=== PATIENT | male | born 1930 | race Caucasian/White ===

== ENCOUNTER → 2017-09-14 | Outpatient (CLI) | payer MEDICARE, BC ==
[~2017-09-14] MED LIST: ATOR40TA24 PO; BICA50TA36 PO; CALC-18 PO; CALC-852 PO; CALC600T82 PO; CHOL10005 PO; CHON250C2 PO; CIPR250S2 PO; DOCU-416 PO; GLUC100026 PO; LEUP7.5S IM; LEVO50TA86 PO; OXYC-865 PO; PANT40TA65 PO; PHENA200 PO; PRAV80TA29 PO; RANI300C8 PO; SIMV-54 PO; TAM4 PO; VIT1CAPS9 PO
--- NOTE | 2017-09-16 18:58 | RT HOLTER TEST ---
FACILITY: [facility] - [place] PATIENT NAME: AMELIE CAMPUZANO : [id number] MR: [id number] V: [id number] EXAM DATE: ORDERING PHYSICIAN: MAHNAZ MUÑOZ TECHNOLOGIST: NETO Hook-up date: 2017-09-14 13:22:00 Duration: 47:59:00 Test Indications: BRADYCARDIA Medications: 660024 QRS complexes 367 Ventricular ectopics which represent <1 % of total QRS comp. 5724 Supraventricular ectopics which represent 3 % of total QRS comp. * Paced QRS complexes which represent % of total QRS comp. VENTRICULAR ECTOPY 359 Isolated 0 Bigeminal Cycles 4 Couplets 0 Runs 0 Beats in Runs * Beats LONGEST at * BPM at :: -- * Beats FASTEST at * BPM at :: -- SUPRAVENTRICULAR ECTOPY 5476 Isolated 60 Couplets 36 Runs 128 Beats in Runs 9 Beats LONGEST at 126 BPM at 16:15:26 2017-09-14 3 Beats FASTEST at 145 BPM at 13:37:30 2017-09-15 HEART RATES 37 MIN at 04:54:07 2017-09-16 56 AVG 131 MAX at 19:41:13 2017-09-15 LONGEST RR 2.024 secs at 00:52:00 2017-09-16 S-T LEVELS Channel 1 -12.800 mm MIN at 13:22:00 2017-09-14 -12.800 mm MAX at 13:22:00 2017-09-14 Channel 2 -12.800 mm MIN at 13:22:00 2017-09-14 -12.800 mm MAX at 13:22:00 2017-09-14 Channel 3 -12.800 mm MIN at 13:22:00 2017-09-14 -12.800 mm MAX at 13:22:00 2017-09-14 First degree AV block is noted. Rare ventricular ectopy with a few couplets. No runs. Occasional supraventricular ectopy with several short runs of what appears to be atrial fibrillation. A few pauses of approximately 2 seconds were recorded. Confirmed by EVETTE BRUNSON ([id number]) on 09/16/2017 6:57:28 PM Referred By: Overread By: EVETTE BRUNSON
== END ==
LOC: RESP 13:05
PROVIDERS: ATTEND Physician Assistant Medical
DX: I44.0 Atrioventricular block, first degree (principal)
CPT/HCPCS: 93225; 93226

== ENCOUNTER 2017-09-17 08:56 | Outpatient (RCR) | payer MEDICARE, BC ==
[2017-09-13 09:16] VITALS: BP 144/72
[2017-09-13 09:22] LABS: PLATELET COUNT, AUTOMATED 203 K/uL (150-450)
[2017-09-17 09:03] VITALS: BP 136/72
--- NOTE | 2017-09-17 09:31 | ONC Progress Note - NP.Halsey ---
Patient History Date of Service Sep 17, 2017 Reason For Visit/HPI Patient is seen in the clinic today for follow-up of his adenocarcinoma with unknown primary and previous history of prostate cancer. Overall patient reports that he is feeling very well. He did develop a very low blood pressure after having his labs drawn and since then has followed with his primary care provider and recently completed a Holter monitor. Results are pending. He reports that his blood pressure has returned to normal baseline and he denies any symptoms of lightheadedness, dizziness, shortness of breath or symptoms to suggest that he had an infection. Patient has been exercising at least twice weekly at the gym. He has no concerns today. Labs are reviewed with patient today and are essentially unremarkable. Patient's PSA is less then 0.06 and remained stable. Problem List (1) Tubular adenoma of colon (2) Mccullough's esophagus (3) Prostate cancer (4) Carcinoma of unknown primary (5) Mass in neck (6) Hypothyroidism Oncology History Prostate Cancer history 1. Poorly differentiated adenocarcinoma of the prostate, predominantly left lobe , status post external beam radiotherapy to 7200 cGy completed March 2002. Lupron reinitiated for biochemical relapse in July 2014 with a PSA of 10. PSA dropped to undetectable. Last Lupron was completed 06/22/2016. PSA was less than 0.06. Dr. Dubon had recommended patient complete Lupron for a total of 2 years with intermittent pulsed dose to follow as needed. Patient having poor toleration, increased weight gain, increased fatigue, decreased bone density and bowel gas, Lupron was discontinued with this last injection. Say remains less than 0.06. Adenocarcinoma of unknown primary 08/20/14: Submantle Node biopsy:Metastatic poorly differentiated carcinoma - Right 09/02/14: PET/CT: "Right anterior hyoid hypermetabolic soft tissue thickening nodule may present the site of recent biopsy. Right hilar mild hypermetabolism represent the site of primary malignancy or metastatic disease. Intermediate 5mm pulmonary nodule abutting the major fissure" - no clear source of primary seen 09/11/14: EGD: hyperplastic polyp in stomach, intestinal metaplasia (Mccullough's esophagus, no evidence of dysplasia) 11/23/14: CT neck with and without contrast: no adenopathy. 03/17/15: CT chest/abdomen/pelvis: unchanged right upper lobe and right middle lobe pulmonary nodules, measuring 3mm and 5 mm. No definitive change noted. Colonoscopy: cecum tubular adenoma 08-04-15 CT chest/abdomen/pelvis: unchanged of all previously noted sites. CT neck:- previously noted soft tissue mass is no longer seen- unremarkable study 12/31/15: CT chest/abd/pelvis: No CT evidence of metastatic disease, Previously noted micro-pulmonary nodules have remained stable, 8 mm lipoma in pancreatic body is stable, Moderate amount of fecal material the colon consistent with constipation, Small hiatal hernia, Renal cysts unchanged 07/07/16: CT chest/abd/pelvis: No CT evidence of metastatic disease identified in the chest abdomen or pelvis. Perviously noted pulmonary micronodules have remained stable. Tracheal and bronchial nodularity also remained stable. 8 mm lipoma in the pancreatic body is stable. Moderate amount of fecal material seen in the colon consistent with constipation. Renal cyst unchanged. Small hiatal hernia 06-28-16 Dexa scan positive for osteopenia with a 7.6% decreased in the lumbar spine and 4.6% decrease in the left total hip. EGD in 2016 reported to show inflammation in the distal esophagus by Dr. Phillips. Patient started on medication with improvement in GERD but has experienced gas Colonoscopy to be done in 2018 Medical History Family History: FH: celiac disease CHILD FH: ovarian cancer CHILD Psychosocial History Social History Patient is and has four children, three of which live very close by. 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 Originally from [place], [place]. Rare alcohol use. Smoking History: No Smoking Status: Never Smoker Exposure to Second Hand Smoke?: No Medications and Allergies Reported Medications Vit C/E/Zn/Coppr/Lutein/Zeaxan (Preservision Areds 2 Softgel) 1 Each Capsule, 1 CAP PO DAILY 05/30/17 Calcium Carbonate (CALCIUM CARBONATE) 600 Mg Tablet, 1 TAB PO DAILY 05/30/17 Cholecalciferol (Vitamin D3) (VITAMIN D3) 1,000 Unit Tablet, 1 TAB PO DAILY 10/10/16 Allergies: Coded Allergies: No Known Drug Allergies (Unverified , 08/19/14) Review of System/Physical Exam Review of Systems All Systems Reviewed/Normal: Yes, Except as Noted Cardiovascular: Positive for Other (reports a recent episode of low blood pressure and completion of Holter monitor with results pending) Physical Exam Vital Signs Temperature: 98.2 Pulse: 52 BP Systolic: 136 BP Diastolic: 72 Respiratory Rate: 16 O2 SAT: 98 O2 Delivery: Room Air Height (inches) 68.00 Weight lb: 158 Weight oz: 5.0 Weight Kg (Stewart): Pain: 0 ECOG Score: 0 General: Stable, Well Developed, Well Nourished, Not In Acute Distress HEENT: No Trauma, No Conjunctivitis, No Icterus, No Mucositis Neck: Supple Lungs: Clear to Auscultation Heart: Regular Rate, Regular Rhythm, No Gallops, No Murmurs Abdomen: Soft and Nontender, No Hepatosplenomegaly, No Masses Extremities: No Cyanosis, No Clubbing, No Edema Lymphadenopathy: No Cervical, No Subclavicular Psychiatric: Mood appears normal, Affect appears normal Skin: No Skin Rashes, No Bruising, No Purpura Diagnostic Studies Diagnostic Studies Laboratory Laboratory Tests 09/13/17 09:09 Laboratory Tests 09/13/17 09:09: White Blood Count 4.7, Red Blood Count 4.31, Hemoglobin 13.8, Hematocrit 40.5, Mean Corpuscular Volume 93.8, Mean Corpuscular Hemoglobin 31.9, Mean Corpuscular Hemoglobin Concent 34.1, Red Cell Distribution Width 13.2, Platelet Count 203, Mean Platelet Volume 7.0, Neutrophils (%) (Auto) 50.5, Lymphocytes (% ) (Auto) 34.9, Monocytes (%) (Auto) 9.4, Eosinophils (%) (Auto) 2.7, Basophils ( %) (Auto) 2.5, Nucleated RBC Relative Count (auto) 0.0, Neutrophils # (Auto) 2.4 , Lymphocytes # (Auto) 1.6, Monocytes # (Auto) 0.4, Eosinophils # (Auto) 0.1, Basophils # (Auto) 0.1, Nucleated RBC Absolute Count (auto) 0.00, Peripheral Blood Smear Yes, Sodium Level 139, Potassium Level 4.1, Chloride Level 102, Carbon Dioxide Level 25, Blood Urea Nitrogen 17, Creatinine 1.00, Glomerular Filtration Rate Calc > 60.0, Random Glucose 87, Calcium Level 9.1, Total Bilirubin 0.6, Aspartate Amino Transf (AST/SGOT) 25, Alanine Aminotransferase ( ALT/SGPT) 28, Alkaline Phosphatase 88, Total Protein 7.6, Albumin 4.0, Prostate Specific Antigen < 0.06 Assessment and Plan Assessment & Plan Patient is a very pleasant 87-year-old gentleman with the following. 1. Prostate cancer with a currently undetectable prostatic specific antigen. Lupron on hold Indefinitely. Could consider alternative androgen deprivation therapy in the future if his PSA rises significantly. However, if it is a slow rise, active surveillance is recommended. 2. Adenocarcinoma of unknown primary. Annual scans including scans in December of 2016 have been negative. His last CEA was slightly elevated at 3.8. I will order a CEA with his next lab draw for continued monitoring. Patient is scheduled to follow with Dr. Samayoa in 3 months with repeat labs. He will follow sooner than that if questions or concerns. I personally spent a total of 20 minutes. Of that 20 minutes was counseling/ coordination of patient's care. See my note above for details. Copies to: JENNIFER WRIGHT MD, NANCY J FORK ASSEMBLER-BC, ONC Sep 17, 2017 09:31
== END 2017-10-17 15:07 | disposition home or self-care (01) ==
LOC: ONC 08:56
PROVIDERS: ATTEND Internal Medicine
DX: C61 Malignant neoplasm of prostate (principal); D12.6 Benign neoplasm of colon, unspecified; C7A.00 Malignant carcinoid tumor of unspecified site; K22.70 Barrett's esophagus without dysplasia; E03.9 Hypothyroidism, unspecified; R22.1 Localized swelling, mass and lump, neck; Z79.899 Other long term (current) drug therapy
CPT/HCPCS: 36415; 84153; 85025; G0463; 82040; 82247; 82310; 82374; 82435; 82565; 82947; 84075; 84132; 84155; 84295; 84450; 84460; 84520; 99212

== ENCOUNTER 2017-12-03 08:47 | Outpatient (RCR) | payer MEDICARE, BC ==
[2017-11-28 09:17] LABS: PLATELET COUNT, AUTOMATED 165 K/uL (150-450)
[2017-11-28 16:54] VITALS: BP 147/95
[2017-12-03 08:51] VITALS: BP 138/70
[2017-12-03] MEDS ORDERED: LEVO50TA86 PO (08:53)
--- NOTE | 2017-12-04 17:39 | ONCOLOGY FOLLOW UP NOTE ---
EVENT DATE: December 03, 2017 CHIEF COMPLAINT/REASON FOR VISIT Mr. Her is a pleasant 87-year-old gentleman with a history of prostate cancer as well as adenocarcinoma of unknown primary, who presents for followup. HISTORY OF PRESENT ILLNESS Fma returns. I took over his care in December of 2016. With regard to his prostate cancer, he stopped the Lupron due to side effects and abdominal weight gain in 2015. His PSA remains undetectable this month as well. There was a 13-year gap between his initial diagnosis in 2001 and relapse in 2014, and so we will continue to watch this twice yearly. No symptoms to suggest return of prostate cancer. With regard to the adenocarcinoma of unknown primary found in the right submandibular gland in July 2014, he continued to have no evidence of disease. It has been over three years since his diagnosis and he has no concerning findings on exam or any symptoms of concern. His scans at the two and a half year jed in December of 2016 were negative. After consideration of this and discussion with Fam, we will only get imaging in the future if needed in terms of symptoms or other symptoms of concern. Overall the patient feels quite well. He continues to exercise regularly. He jokes that his biggest complaint is that he accidentally closed his finger in a car door and hurt his nail. Otherwise no other issues of concern. ONCOLOGY HISTORY Prostate Cancer history 1. Poorly differentiated adenocarcinoma of the prostate, predominantly left lobe , status post external beam radiotherapy to 7200 cGy completed March 2002. Lupron reinitiated for biochemical relapse in July 2014 with a PSA of 10. PSA dropped to undetectable. Last Lupron was completed 06/22/2016. PSA was less than 0.06. Dr. Dubon had recommended patient complete Lupron for a total of 2 years with intermittent pulsed dose to follow as needed. Patient having poor toleration, increased weight gain, increased fatigue, decreased bone density and bowel gas, Lupron was discontinued with this last injection. Say remains less than 0.06. Adenocarcinoma of unknown primary 08/20/14: Submantle Node biopsy:Metastatic poorly differentiated carcinoma - Right 09/02/14: PET/CT: "Right anterior hyoid hypermetabolic soft tissue thickening nodule may present the site of recent biopsy. Right hilar mild hypermetabolism represent the site of primary malignancy or metastatic disease. Intermediate 5mm pulmonary nodule abutting the major fissure" - no clear source of primary seen 09/11/14: EGD: hyperplastic polyp in stomach, intestinal metaplasia (Mccullouhg's esophagus, no evidence of dysplasia) 11/23/14: CT neck with and without contrast: no adenopathy. 03/17/15: CT chest/abdomen/pelvis: unchanged right upper lobe and right middle lobe pulmonary nodules, measuring 3mm and 5 mm. No definitive change noted. Colonoscopy: cecum tubular adenoma 08-04-15 CT chest/abdomen/pelvis: unchanged of all previously noted sites. CT neck:- previously noted soft tissue mass is no longer seen- unremarkable study 12/31/15: CT chest/abd/pelvis: No CT evidence of metastatic disease, Previously noted micro-pulmonary nodules have remained stable, 8 mm lipoma in pancreatic body is stable, Moderate amount of fecal material the colon consistent with constipation, Small hiatal hernia, Renal cysts unchanged 07/07/16: CT chest/abd/pelvis: No CT evidence of metastatic disease identified in the chest abdomen or pelvis. Perviously noted pulmonary micronodules have remained stable. Tracheal and bronchial nodularity also remained stable. 8 mm lipoma in the pancreatic body is stable. Moderate amount of fecal material seen in the colon consistent with constipation. Renal cyst unchanged. Small hiatal hernia 06-28-16 Dexa scan positive for osteopenia with a 7.6% decreased in the lumbar spine and 4.6% decrease in the left total hip. EGD in 2016 reported to show inflammation in the distal esophagus by Dr. Phillips. Patient started on medication with improvement in GERD but has experienced gas Colonoscopy to be done in 2018 SOCIAL HISTORY Patient is and has four children, three of which live very close by. 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 Originally from [place], [place]. Rare alcohol use. Never smoker. FAMILY HISTORY Daughter with ovarian cancer. REVIEW OF SYSTEMS CONSTITUTIONAL: No fever or chills, weight loss. HEENT: No headache, vision changes. CARDIOVASCULAR: No chest pain, dyspnea on exertion, edema. RESPIRATORY: No shortness of breath, wheeze, cough. GASTROINTESTINAL: No nausea, vomiting. GENITOURINARY: No dysuria, hematuria. MUSCULOSKELETAL: Positive arthritis, but is able to walk without difficulty. SKIN: No concerning rashes or lesions. ENDOCRINE: No heat or cold intolerance. PSYCHIATRIC: No anxiety or depression. IMMUNOLOGIC: No issues with infection. The remainder of the 14-point review of systems is negative is otherwise negative. PHYSICAL EXAMINATION VITAL SIGNS: Blood pressure 138/70, pulse 45, respiratory rate 16, temperature 97 Fahrenheit, oxygen saturation 96% on room air. Weight 73.8 kg. Pain 0/10, fatigue 0/10. GENERAL: In stable condition, resting comfortably in the chair. HEENT: Normocephalic, atraumatic. CARDIOVASCULAR: Bradycardia. Irregular rhythm. We did have a recent Holter monitor which suggests he may have sick sinus syndrome or other bradycardia. Should follow up with his primary care provider. LUNGS: Clear. ABDOMEN: Soft, nontender. No organomegaly or masses. EXTREMITIES: No clubbing, cyanosis or edema. LYMPHATIC: No appreciable cervical, supraclavicular or axillary adenopathy. SKIN: No concerning findings. The remainder of the physical exam otherwise unremarkable. IMPRESSION AND PLAN Mr. Her is a very pleasant 87-year-old gentleman with the following. 1. Prostate cancer with a currently undetectable prostatic specific antigen. Lupron on hold Indefinitely and it was stopped in 2015. Recommend active surveillance. He was first diagnosed in 2001 with relapse in 2014. 2. Adenocarcinoma of unknown primary. We will now only get scans as needed. He did have a negative scan in December of 2016 which was two and a half years after his diagnosis. No findings on exam. Would like to see him every six months. I answered all of his questions today. Billing: Return visit level 4. Total time 30 minutes, counseling time 25. MTDD
== END 2017-12-19 14:02 | disposition home or self-care (01) ==
LOC: ONC 08:47
PROVIDERS: ATTEND Internal Medicine
DX: Z85.46 Personal history of malignant neoplasm of prostate (principal); D12.6 Benign neoplasm of colon, unspecified; C7A.00 Malignant carcinoid tumor of unspecified site
CPT/HCPCS: 36415; 82378; 84153; 85025; G0463; 82040; 82247; 82310; 82374; 82435; 82565; 82947; 84075; 84132; 84155; 84295; 84450; 84460; 84520; 99212

== ENCOUNTER 2017-12-11 08:15 | Outpatient (RCR) | payer MEDICARE, BC ==
--- NOTE | 2017-11-15 15:31 | PT INITIAL EVALUATION ---
MEDICAL DIAGNOSIS: R wrist fracture TREATMENT DIAGNOSIS: same DATE OF ONSET: 10/01/17 SUBJECTIVE: Fam Mills presents to physical therapy status post R wrist fracture that occurred around the 01 of October following a fall when an outstretched R hand while shoveling his [employer] driveway. He reports that he fell approximately 2 week prior to seeking medical attention. He reports that he was immobilized in a brace for the last 4 weeks. He reports minimal R wrist pain and rates it to be 1-2/10. He reports that he is left handed, but used his R hand a lot prior to his injury. Pain location is R wrist dorsal pain (non- specific area pain) and described as achy. Pain scale is 2 on a ten point pain scale. Pain is worse with movement and better with ice and rest. REHAB PROBLEM LIST: Increased Pain Decreased ROM Decreased Strength Decreased Endurance Decreased Function Decreased ADL's PREVIOUS MEDICAL HISTORY: See EMR OCCUPATION: Retired OBJECTIVE: Posture: He demonstrated minimal forward head, minimal B rounded shoulders, minimal thoracic kyphosis, and decreased lumbar lordosis. ROM: L wrist PROM: flexion: 45 deg, extension: 75, ulnar deviation: 35 deg, radial deviation: 20 deg, supination: 90 deg, and pronation: 90 deg. L wrist AROM: flexion: 25 degrees, extension: 60, ulnar deviation: 35 deg, radial deviation: 20 deg. R wrist PROM: flexion: 40 deg, extension: 55 deg, ulnar deviation: 30 degrees, radial deviation: 20 degrees, supination and pronation: 90 degrees. R wrist AROM: flexion: 23 degrees, extension: 45 deg, ulnar deviation: 35 deg, radial deviation: 20 degree, pronation and supination: 90 degrees. He demonstrated empty end feels with R wrist flexion and extension. Strength: Will test in the future Palpation: R wrist dorsal pain surrounding the metacarpals, carpals bones, and distal ulnar and radial bones. Sensation: Intact Special Tests: Moderate hypomobility with 1-5 metatarsals Mobility: Independent ASSESSMENT: Fam Mills will benefit from skilled physical therapy addressing the listed impairments to improve function, return to prior level of function, and improve QOL. Short Term Goals 2 weeks: Pt will demonstrate full PROM-AROM of R wrist flexion and extension ( equal with L wrist flexion and extension) to improve function and QOL. 4 weeks: Pt will demonstrate improvements with R wrist, hand, and sales development consultant strength from baseline to 4+/5 to improve function and QOL. Patient's Goals improve ROM and strength PLAN: Patient to be seen for Manual Therapy/STM/MET Strengthening/condition Range of Motion Work Hardening/Cond Stretching Neuromuscular Re-ed Closed Chain Program Posture/Body mechanics Home Exercise Program Therapeutic Activities 2x/Week for 4 Weeks If you have any questions, comments, or concerns about this report or plan, please contact me at . Thank you, Darwin Guallpa, PT, DPT MTDD
--- NOTE | 2017-12-12 09:47 | PT PLAN OF CARE ---
Physician: Chandra Ramirez MD Patient is being seen: 2x/week Therapist: Darwin Guallpa, PT, DPT Medical Diagnosis: R wrist fracture Treatment Diagnosis: same Date of Onset: 10/01/17 Date of Initial Evaluation: 11/15/17 Date patient was last seen: 12/11/17 Number of treatments: 8 Number of cancellations/No shows: 0 INTERVENTIONS: Manual Therapy/STM/MET Strengthening/condition Range of Motion Work Hardening/Cond Stretching Neuromuscular Re-ed Closed Chain Program Posture/Body mechanics Home Exercise Program Therapeutic Activities GOALS: 2 weeks: Pt will demonstrate full PROM-AROM of R wrist flexion and extension ( equal with L wrist flexion and extension) to improve function and QOL. MET 4 weeks: Pt will demonstrate improvements with R wrist, hand, and buccaro strength from baseline to 4+/5 to improve function and QOL. MET PATIENT'S GOAL: improve ROM and strength: MET Status of Patient's Goals: MET Patient Compliance: Excellent Prognosis: Excellent Reasons for continuing therapy: This is a discharge note for Fam Mills. He reports that he is feeling great and denies any pain. He demonstrates equal strength and range of motion from R to L side. He continues to be independent with his home exercise program. As a result, he will be discharged from PT. Posture: He demonstrated minimal forward head, minimal B rounded shoulders, minimal thoracic kyphosis, and decreased lumbar lordosis. ROM: L wrist PROM: flexion: 45 deg, extension: 75, ulnar deviation: 35 deg, radial deviation: 20 deg, supination: 90 deg, and pronation: 90 deg. L wrist AROM: flexion: 45 degrees, extension: 75, ulnar deviation: 35 deg, radial deviation: 20 deg. R wrist PROM: flexion: 45 deg, extension: 75 deg, ulnar deviation: 35 degrees, radial deviation: 20 degrees, supination and pronation: 90 degrees. R wrist AROM: flexion: 45 degrees, extension: 75 deg, ulnar deviation: 35 deg, radial deviation: 20 degrees, pronation and supination: 90 degrees. He demonstrated normal end feels in all directions Strength: R buccaro: 76#, L buccaro: 76# best of 3 Special Tests: Normal accessory mobility with 1-5 metatarsals Mobility: Independent If you have any questions, please contact me at [phone]. Thank you, Darwin Guallpa, PT, DPT [facility]
== END 2017-12-11 18:00 | disposition home or self-care (01) ==
LOC: PT 08:15
PROVIDERS: ATTEND Orthopaedic Surgery Hand Surgery
DX: Z47.89 Encounter for other orthopedic aftercare (principal); M25.531 Pain in right wrist
CPT/HCPCS: 97162

== ENCOUNTER → 2018-02-11 | Outpatient (CLI) | payer MEDICARE, BC ==
[~2018-02-11] MED LIST changes: -BICA50TA36 PO; +BICA50TA41 PO; +CEPH500C24 PO; +TAMS0.4C25 PO
== END ==
LOC: LAB 10:53
PROVIDERS: ATTEND Urology
DX: N39.0 Urinary tract infection, site not specified (principal); B96.89 Other specified bacterial agents as the cause of diseases classified elsewhere
CPT/HCPCS: 81001; 87077; 87088

== ENCOUNTER 2018-02-14 15:40 | Emergency (ER) | payer MEDICARE, BC ==
[~2018-02-14 15:40] MED LIST changes: -CEPH500C24 PO; -TAMS0.4C25 PO
[2018-02-14] MEDS ORDERED: CEPH500C24 PO (15:56)
[2018-02-14] MEDS ORDERED: TAMS0.4C25 PO (15:56)
--- NOTE | 2018-02-14 17:04 | ER Report ---
History and Physical Time Seen By MD: 15:49 Hx. of Stated Complaint: patient has had a uti for a while; seen Dr. Wlesh urology this week and was placed on antibiotics and flomax HPI/ROS CHIEF COMPLAINT: urinary retention HISTORY OF PRESENT ILLNESS: Pt has hx of prostate cx x 3, though with PSA most recently nl, was seen at his urologist and noted to have uti, placed on keflex. Pt has had 2 d of decreased urination despite urgency, abd bloating, decrease in caliber of stools. He denies vomiting, nausea, cp, sob, fevers, chills REVIEW OF SYSTEMS: Constitutional: No fever, no chills. Eyes: No discharge. ENT: No sore throat. Cardiovascular: No chest pain, no palpitations. Respiratory: No cough, no shortness of breath. Gastrointestinal: abdominal bloating, no vomiting Genitourinary: No hematuria, cannot urinate more than a couple ounces; has had urinary incontinence Musculoskeletal: No back pain. Skin: No rashes. Neurological: No headache. Remainder of the 14 system rev: Yes Allergies: Coded Allergies: No Known Drug Allergies (Unverified , 08/19/14) Home Meds Reported Medications Tamsulosin Hcl (FLOMAX) 0.4 Mg Cap.er.24h, 0.4 MG PO, CAP 02/14/18 Cephalexin Monohydrate (CEPHALEXIN) 500 Mg Cap, 500 MG PO Q6H, CAP 02/14/18 Levothyroxine Sodium (LEVOTHYROXINE SODIUM) 50 Mcg Tablet, 50 MCG PO QDAY, TAB 12/03/17 Vit C/E/Zn/Coppr/Lutein/Zeaxan (Preservision Areds 2 Softgel) 1 Each Capsule, 1 CAP PO DAILY 05/30/17 Calcium Carbonate (CALCIUM CARBONATE) 600 Mg Tablet, 1 TAB PO DAILY 05/30/17 Cholecalciferol (Vitamin D3) (VITAMIN D3) 1,000 Unit Tablet, 1 TAB PO DAILY 10/10/16 Past Medical/Surgical History prostate cx Hx Smoking: No Smoking Status: Never Smoker Exposure to Second Hand Smoke?: No Constitutional Vital Sign - Last 24 Hours 02/14/18 02/14/18 02/14/18 15:47 15:47 16:00 Temp 97.8 Pulse 75 Resp 17 B/P (MAP) 145/77 (99) 145/77 142/91 (108) Pulse Ox 95 O2 Delivery Room Air Intake and Output 02/14/18 02/14/18 02/15/18 15:00 23:00 07:00 Output Total 100 ml Balance -100 ml Physical Exam General Appearance: The patient is alert, has no immediate need for airway protection and no signs of toxicity. [ ] Eyes: Pupils equal and round no pallor or injection. ENT, Mouth: Mucous membranes are moist. Respiratory: There are no retractions, lungs are clear to auscultation. Cardiovascular: regular rate and rhythm. No m/r/g Gastrointestinal: abdomen is distended, minimally tender. BS nl [Neurological:] alert/oriented Skin: Warm and dry, no rashes. Musculoskeletal: no edema, moves all ext Extremities are nontender, nonswollen and have full range of motion. [ ] DIFFERENTIAL DIAGNOSIS: After history and physical exam differential diagnosis was considered for urinary retention, urosepsis, prostatitis, abdominal obstruction, or other emergent etiology. Medical Decision Making Data Points Laboratory Hematology Test 02/14/18 16:23 Urine Color Yellow Urine Clarity Slightly-cloudy Urine pH 6.0 pH (4.8-9.5) Urine Specific [place] 1.010 Urine Protein 30 mg/dL (NEGATIVE) Urine Glucose (UA) Negative mg/dL (NEGATIVE) Urine Ketones Negative mg/dL (NEGATIVE) Urine Blood Negative (NEGATIVE) Urine Nitrite Negative (NEGATIVE) Urine Bilirubin Negative (NEGATIVE) Urine Urobilinogen Negative mg/dL (0.2-1.9) Urine Leukocyte Esterase Moderate (NEGATIVE) Urine RBC 5 /HPF (0-2/HPF) Urine WBC 109 /HPF (0-5/HPF) Urine WBC Clumps Mod /HPF Urine Squamous Epithelial Cells Moderate /LPF (NONE-FEW) Urine Bacteria Few /HPF (NONE-FEW) Urine Mucus None /HPF (NONE-FEW) Chemistry Test 02/14/18 16:23 Urine Color Yellow Urine Clarity Slightly-cloudy Urine pH 6.0 pH (4.8-9.5) Urine Specific [place] 1.010 Urine Protein 30 mg/dL (NEGATIVE) Urine Glucose (UA) Negative mg/dL (NEGATIVE) Urine Ketones Negative mg/dL (NEGATIVE) Urine Blood Negative (NEGATIVE) Urine Nitrite Negative (NEGATIVE) Urine Bilirubin Negative (NEGATIVE) Urine Urobilinogen Negative mg/dL (0.2-1.9) Urine Leukocyte Esterase Moderate (NEGATIVE) Urine RBC 5 /HPF (0-2/HPF) Urine WBC 109 /HPF (0-5/HPF) Urine WBC Clumps Mod /HPF Urine Squamous Epithelial Cells Moderate /LPF (NONE-FEW) Urine Bacteria Few /HPF (NONE-FEW) Urine Mucus None /HPF (NONE-FEW) Urinalysis Test 02/14/18 16:23 Urine Color Yellow Urine Clarity Slightly-cloudy Urine pH 6.0 pH (4.8-9.5) Urine Specific [place] 1.010 Urine Protein 30 mg/dL (NEGATIVE) Urine Glucose (UA) Negative mg/dL (NEGATIVE) Urine Ketones Negative mg/dL (NEGATIVE) Urine Blood Negative (NEGATIVE) Urine Nitrite Negative (NEGATIVE) Urine Bilirubin Negative (NEGATIVE) Urine Urobilinogen Negative mg/dL (0.2-1.9) Urine Leukocyte Esterase Moderate (NEGATIVE) Urine RBC 5 /HPF (0-2/HPF) Urine WBC 109 /HPF (0-5/HPF) Urine WBC Clumps Mod /HPF Urine Squamous Epithelial Cells Moderate /LPF (NONE-FEW) Urine Bacteria Few /HPF (NONE-FEW) Urine Mucus None /HPF (NONE-FEW) ED Course/Re-evaluation ED Course Pt feels significantly improved with urine cath; leg bag placed. UA with sgs of infection though given recent keflex and pt's symptoms, it is likely effective. I reviewed typical susceptibilities of A. Urinae as our lab is unable to run this; it is generally pcn (keflex) sensitive, so will maintain keflex. At 1645 I attempted to page Dr[address] Quiroga to discuss plan and f/u; Dr. Quiroga in agreement with plan. Decision to Disposition Date: Feb 14, 2018 Decision to Disposition Time: 17:04 Depart Departure Latest Vital Signs Vital Signs Date Time Temp Pulse Resp B/P (MAP) Pulse Ox O2 Delivery O2 Flow Rate FiO2 02/14/18 16:00 142/91 (108) 02/14/18 15:47 97.8 75 17 95 Room Air Impression: Primary Impression: Urinary retention Condition: Improved Disposition: HOME OR SELF-CARE Referrals: JENNIFER WRIGHT MD (PCP) JENN QUIROGA MD Patient Instructions: Garzon Catheter Placement and Care (ED), Urinary Retention in Men (ED) VIKASH RANKIN MD Feb 14, 2018 17:04
[2018-02-14 17:45] VITALS: BP 148/92
== END 2018-02-14 18:08 | disposition home or self-care (01) ==
LOC: ER 15:49
DX: R33.9 Retention of urine, unspecified (principal)
CPT/HCPCS: 81001; 99282

== ENCOUNTER → 2018-02-25 | Outpatient (CLI) | payer MEDICARE, BC ==
[~2018-02-25] MED LIST changes: +CEPH500C24 PO; +TAMS0.4C25 PO
--- NOTE | 2018-02-25 11:44 | RADIOLOGY IMAGING REPORT ---
FACILITY: [facility] PATIENT NAME: Fam Mills : 1930 MR: [id number] V: [id number] EXAM DATE: ORDERING PHYSICIAN: AMADEO LÓPEZ TECHNOLOGIST: Location: [facility] [place] Patient: Fam Mills : 1930 Visit/Account:[id number] Date of Sevice: 02/25/2018 ABDOMEN/PELVIS W/O CONTRAST HISTORY: Constipation TECHNIQUE: Axial images acquired through the abdomen/pelvis. Coronal and sagittal reformatting also performed. No IV contrast administered. Dose Lowering Technique One of the following dose optimization techniques was utilized in the performance of this exam: Autom ated exposure control; adjustment of the mA and/or kV according to the patient's size; or use of an i terative reconstruction technique. Specific details can be referenced in the facility's radiology C T exam operational policy. COMPARISON: CT chest abdomen and pelvis January 01, 2017 FINDINGS: Visualized lung bases: Bibasilar pulmonary nodules and parenchymal scarring appears relatively uncha nged left with slight difference in imaging technique. Hepatobiliary: Negative. Spleen: Negative. Adrenals: Negative. Pancreas: Lipoma in the mid body the pancreas slightly increased in size now measuring 11 mm as oppo sed 8 mm Kidneys ureters and bladder: Bilateral renal cysts. There is a Garzon catheter in urinary bladder. The bladder wall is moderately thickened Genitalia: Brachytherapy seeds are seen within the prostate gland GI: There is now presacral soft tissue density measuring approximately 1.8 cm in thickness which was not present previously. There are streaky infiltrative changes seen in the perirectal fat and recta l wall thickening which could be secondary to an acute infectious/inflammatory process. There is a m oderate amount of fecal material seen in the right-sided the colon, transverse colon and proximal john cending colon consistent with the history of constipation. The sigmoid colon appears relatively deco mpressed. Due to the relatively abrupt transition a colonoscopy may be helpful .. Hyperdense material is noted within the stomach of uncertain etiology There is a small to moderate hiatal hernia Vessels/spaces/nodes: There are mild to moderate vascular calcifications the abdominal aorta and bra nch vessels Bones/soft tissues: Spondylotic changes lower lumbar spine. Small umbilical hernia containing fat Additional findings: None pertinent. IMPRESSION: There is now presacral soft tissue density present on the prior study. There are also streaky infilt rative changes seen in the perirectal fat with adjacent wall thickening of the rectum. This could be secondary to an acute infectious/inflammatory process. There is a moderate amount of fecal material seen in the right-sided colon, transverse colon and prox imal descending colon consistent with history of constipation. The sigmoid colon appears well totall y decompressed. Due to the abrupt transition colonoscopy may be helpful Small to moderate hiatal hernia and hyperdense material within the stomach of uncertain etiology. Acute therapy seeds within the prostate Garzon catheter noted within the urinary bladder. The bladder wall is moderately thickened Lipoma in the mid body the pancreas is slightly increased in size now measuring 11 mm as opposed 8 mm Bibasal pulmonary nodules and parenchymal scarring appears relatively unchanged Report Dictated By: Alisha Naylor MD at 02/25/2018 11:24 AM Report E-Signed By: Alisha Naylor MD at 02/25/2018 11:41 AM LORENZON:HOMA
== END ==
LOC: CT 10:46
PROVIDERS: ATTEND Family Medicine
DX: K59.00 Constipation, unspecified (principal); K44.9 Diaphragmatic hernia without obstruction or gangrene; Z92.3 Personal history of irradiation; Z96.0 Presence of urogenital implants; R91.8 Other nonspecific abnormal finding of lung field
CPT/HCPCS: 74176; 81001; 87088

== ENCOUNTER 2018-02-27 09:54 | Observation (INO) | payer MEDICARE, BC ==
[~2018-02-27] VITALS: Ht 167.6 cm; Wt 71.7 kg
--- NOTE | 2018-02-27 10:13 | EKG ---
FACILITY: [facility] PATIENT NAME: AMELIE CAMPUZANO : [id number] MR: [id number] V: [id number] EXAM DATE: ORDERING PHYSICIAN: KATIE OTERO TECHNOLOGIST: YRIS Luz Reason : CP Blood Pressure : / mmHG Vent. Rate : 071 BPM Atrial Rate : 071 BPM P-R Int : 190 ms QRS Dur : 082 ms QT Int : 398 ms P-R-T Axes : 064 005 050 degrees QTc Int : 432 ms Normal sinus rhythm Normal ECG When compared with ECG of 20-AUG-2014 10:02, No significant change was found Confirmed by LISA AGUILAR ([id number]) on 02/27/2018 2:27:16 PM Referred By: BRANDEN Confirmed By:LISA AGUILAR
--- NOTE | 2018-02-27 10:27 | RADIOLOGY IMAGING REPORT ---
FACILITY: [facility] PATIENT NAME: Fam Mills : 1930 MR: [id number] V: [id number] EXAM DATE: ORDERING PHYSICIAN: KATIE OTEOR TECHNOLOGIST: Location: [facility] Patient: Fam Mills : 1930 Visit/Account:[id number] Date of Sevice: 02/27/2018 Single view of the chest Indication: Chest pain.. Comparison: CT from 01/01/17 Findings: Heart size within normal limits. There is no focal infiltrate or lobar consolidation. No pneumothorax or pleural effusion. No acute bony finding. IMPRESSION: 1. No acute cardiopulmonary process. Report Dictated By: Katie Harris MD at 02/27/2018 10:19 AM Report E-Signed By: Katie Harris MD at 02/27/2018 10:22 AM WSN:[id number]
[2018-02-27 10:31] LABS: PLATELET COUNT, AUTOMATED 309 K/uL (150-450)
--- NOTE | 2018-02-27 10:34 | ER Report ---
History and Physical Time Seen By MD: 10:05 Hx. of Stated Complaint: PT FELL TWICE TODAY AND HIT HEAD, NO LOC, FELL TWICE YESTERDAY HPI/ROS CHIEF COMPLAINT: Frequent falls HISTORY OF PRESENT ILLNESS: 79 atrial male who was seen at a primary care office for multiple frequent falls comes emergency Department today being sent from the care facility due to the falls. Patient also has had a CAT scan demonstrating some inflammation around the rectum which is been seen and evaluated patient also reportedly had some renal insufficiencies had urology at bedside while he was at the office in the clinic patient on arrival here states that for the last week or so he's notices had multiple falls denies any head or neck trauma says he just feels weak patient has no chest pain shortness of breath nausea vomiting diarrhea fever chills patient does state that he has had decreased bowel movements this is known to primary care 8 started him on multiple stool softeners and laxatives with little to no benefit patient has a known history of prostate CA which she had radiation seeding for patient denies any urinary complaints at this time patient denies any chest pain at or shortness of breath this time denies any neurological complaints REVIEW OF SYSTEMS: Respiratory: No cough, no dyspnea. Cardiovascular: No chest pain, no palpitations. Gastrointestinal: No vomiting, no abdominal pain. Musculoskeletal: No back pain. Remainder of the 14 system rev: Yes Allergies: Coded Allergies: No Known Drug Allergies (Unverified , 08/19/14) Home Meds Reported Medications Tamsulosin Hcl (FLOMAX) 0.4 Mg Cap.er.24h, 0.4 MG PO, CAP 02/14/18 Cephalexin Monohydrate (CEPHALEXIN) 500 Mg Cap, 500 MG PO Q6H, CAP 02/14/18 Levothyroxine Sodium (LEVOTHYROXINE SODIUM) 50 Mcg Tablet, 50 MCG PO QDAY, TAB 12/03/17 Vit C/E/Zn/Coppr/Lutein/Zeaxan (Preservision Areds 2 Softgel) 1 Each Capsule, 1 CAP PO DAILY 05/30/17 Calcium Carbonate (CALCIUM CARBONATE) 600 Mg Tablet, 1 TAB PO DAILY 05/30/17 Cholecalciferol (Vitamin D3) (VITAMIN D3) 1,000 Unit Tablet, 1 TAB PO DAILY 10/10/16 Reviewed Nurses Notes: Yes Old Medical Records Reviewed: Yes Hx Smoking: No Smoking Status: Never Smoker Exposure to Second Hand Smoke?: No Constitutional Vital Sign - Last 24 Hours 02/27/18 02/27/18 02/27/18 02/27/18 09:54 10:00 10:01 10:09 Temp 98.3 Pulse ??? 75 67 Resp 16 11 B/P (MAP) 144/80 (101) 144/80 Pulse Ox 93 97 O2 Delivery Room Air 02/27/18 02/27/18 02/27/18 02/27/18 10:24 10:30 10:39 10:54 Pulse 68 ??? 64 Resp 22 22 B/P (MAP) 131/71 (91) Pulse Ox 95 95 02/27/18 02/27/18 02/27/18 02/27/18 11:00 11:09 11:24 12:24 Temp 98.8 Pulse 59 ??? Resp 20 19 B/P (MAP) 130/70 (90) Pulse Ox 94 Physical Exam General Appearance: [The patient is alert, has no immediate need for airway protection and no current signs of toxicity.] [ ] Eyes: Pupils equal and round no injection. Respiratory: Chest is non tender, lungs are clear to auscultation. Cardiac: regular rate and rhythm [ ] Gastrointestinal: Abdomen is soft and non tender, no masses, bowel sounds normal. Musculoskeletal: Neck: Neck is supple and non tender. Extremities have full range of motion and are non tender. Skin: No rashes or lesions. [ Neurologic examination no focal deficits] DIFFERENTIAL DIAGNOSIS: After history and physical exam differential diagnosis was considered for stroke syncope cardiogenic syncope cardiogenic dysfunction weakness Medical Decision Making Data Points Result Diagram: 02/27/18 1020 02/27/18 1020 Laboratory Hematology Test 02/27/18 10:20 Red Blood Count 3.72 M/uL (4.00-5.60) Mean Corpuscular Volume 91.9 fL (80.0-96.0) Mean Corpuscular Hemoglobin 32.1 pg (26.0-33.0) Mean Corpuscular Hemoglobin Concent 34.9 g/dL (32.0-36.0) Red Cell Distribution Width 13.1 % (11.5-14.5) Mean Platelet Volume 6.5 fL (7.2-11.1) Neutrophils (%) (Auto) 79.5 % (39.4-72.5) Lymphocytes (%) (Auto) 9.0 % (17.6-49.6) Monocytes (%) (Auto) 10.3 % (4.1-12.4) Eosinophils (%) (Auto) 0.6 % (0.4-6.7) Basophils (%) (Auto) 0.6 % (0.3-1.4) Nucleated RBC Relative Count (auto) 0.0 /100WBC Neutrophils # (Auto) 10.4 K/uL (2.0-7.4) Lymphocytes # (Auto) 1.2 K/uL (1.3-3.6) Monocytes # (Auto) 1.3 K/uL (0.3-1.0) Eosinophils # (Auto) 0.1 K/uL (0.0-0.5) Basophils # (Auto) 0.1 K/uL (0.0-0.1) Nucleated RBC Absolute Count (auto) 0.00 K/uL Peripheral Blood Smear Yes Y/N D-Dimer Quantitative (PE/DVT) 1.48 ug/ml (0-0.50) Sodium Level 137 mmol/L (137-145) Potassium Level 3.9 mmol/L (3.5-5.0) Chloride Level 99 mmol/L (98-107) Carbon Dioxide Level 28 mmol/L (22-30) Blood Urea Nitrogen 17 mg/dl (9-21) Creatinine 0.80 mg/dl (0.66-1.25) Glomerular Filtration Rate Calc > 60.0 Random Glucose 124 mg/dl (75-110) Calcium Level 8.6 mg/dl (8.4-10.2) Total Bilirubin 0.3 mg/dl (0.2-1.3) Aspartate Amino Transf (AST/SGOT) 16 U/L (0-35) Alanine Aminotransferase (ALT/SGPT) 20 U/L (0-56) Alkaline Phosphatase 73 U/L (0-126) Troponin I < 0.012 ng/ml B-Type Natriuretic Peptide 181 pg/ml (0-100) Total Protein 6.8 g/dl (6.3-8.2) Albumin 3.5 g/dl (3.5-5.0) Chemistry Test 02/27/18 10:20 White Blood Count 13.1 k/uL (4.5-11.0) Red Blood Count 3.72 M/uL (4.00-5.60) Hemoglobin 11.9 g/dL (14.0-18.0) Hematocrit 34.2 % (42.0-52.0) Mean Corpuscular Volume 91.9 fL (80.0-96.0) Mean Corpuscular Hemoglobin 32.1 pg (26.0-33.0) Mean Corpuscular Hemoglobin Concent 34.9 g/dL (32.0-36.0) Red Cell Distribution Width 13.1 % (11.5-14.5) Platelet Count 309 K/uL (150-450) Mean Platelet Volume 6.5 fL (7.2-11.1) Neutrophils (%) (Auto) 79.5 % (39.4-72.5) Lymphocytes (%) (Auto) 9.0 % (17.6-49.6) Monocytes (%) (Auto) 10.3 % (4.1-12.4) Eosinophils (%) (Auto) 0.6 % (0.4-6.7) Basophils (%) (Auto) 0.6 % (0.3-1.4) Nucleated RBC Relative Count (auto) 0.0 /100WBC Neutrophils # (Auto) 10.4 K/uL (2.0-7.4) Lymphocytes # (Auto) 1.2 K/uL (1.3-3.6) Monocytes # (Auto) 1.3 K/uL (0.3-1.0) Eosinophils # (Auto) 0.1 K/uL (0.0-0.5) Basophils # (Auto) 0.1 K/uL (0.0-0.1) Nucleated RBC Absolute Count (auto) 0.00 K/uL Peripheral Blood Smear Yes Y/N D-Dimer Quantitative (PE/DVT) 1.48 ug/ml (0-0.50) Glomerular Filtration Rate Calc > 60.0 Calcium Level 8.6 mg/dl (8.4-10.2) Total Bilirubin 0.3 mg/dl (0.2-1.3) Aspartate Amino Transf (AST/SGOT) 16 U/L (0-35) Alanine Aminotransferase (ALT/SGPT) 20 U/L (0-56) Alkaline Phosphatase 73 U/L (0-126) Troponin I < 0.012 ng/ml B-Type Natriuretic Peptide 181 pg/ml (0-100) Total Protein 6.8 g/dl (6.3-8.2) Albumin 3.5 g/dl (3.5-5.0) Coagulation Test 02/27/18 10:20 D-Dimer Quantitative (PE/DVT) 1.48 ug/ml ED Course/Re-evaluation ED Course ED clinical course medical decision-making 79-year-old male who presents to the emergency room today with frequent falls concerned about a area and a CT scan and around his rectum this was evaluated up at [facility] general surgery Dr. Jiang confirm that there is no abscess formation will see him as an outpatient recommended that to primary care with a called in addition to that there is concern about his BUN/creatinine this was normal at time of presentation his d- dimer was elevated CT angiogram showed no blood clots cardiac markers enzymes chest x-ray and EKG all negative IED was unable to produce urine rhinorrhea Garzon recently however unable to pass urine today we will put a Garzon leg bag and spoke to the family about admission family has declined requesting to take him home patient was offered admission at this time. Decision to Disposition Date: Feb 27, 2018 Decision to Disposition Time: 14:26 Depart Departure Latest Vital Signs Vital Signs Date Time Temp Pulse Resp B/P (MAP) Pulse Ox O2 Delivery O2 Flow Rate FiO2 02/27/18 12:24 98.8 02/27/18 11:24 ??? 19 02/27/18 11:09 94 02/27/18 11:00 130/70 (90) 02/27/18 10:01 Room Air Impression: Primary Impression: Urinary retention Additional Impression: Weakness Condition: Improved Disposition: HOME OR SELF-CARE Referrals: JENNIFER WRIGHT MD (PCP) 2 Days Patient Instructions: Urinary Retention in Men (ED) Problem Qualifiers KATIE OTERO MD Feb 27, 2018 10:34
--- NOTE | 2018-02-27 11:00 | RADIOLOGY IMAGING REPORT ---
FACILITY: [facility] PATIENT NAME: Fam Mills : 1930 MR: [id number] V: [id number] EXAM DATE: ORDERING PHYSICIAN: KATIE OTERO TECHNOLOGIST: Location: [facility] Patient: Fam Mills : 1930 Visit/Account:[id number] Date of Sevice: 02/27/2018 EXAMINATION: Head CT without intravenous contrast HISTORY: Weakness TECHNIQUE: Contiguous axial images were obtained from the skull base to the vertex without intraven ous contrast. Sagittal and coronal reformatted images are also submitted. Dose Lowering Technique One of the following dose optimization techniques was utilized in the performance of this exam: Autom ated exposure control; adjustment of the mA and/or kV according to the patient's size; or use of an i terative reconstruction technique. Specific details can be referenced in the facility's radiology C T exam operational policy. COMPARISON: None. FINDINGS: Brain volume: There is moderate diffuse central cortical atrophy Ventricles: Moderate central atrophy Acute ischemic changes: None. Hemorrhage: None. Masses / edema: None. Carrasco-white: Negative. White matter: There are patchy hypodensities in periventricular white matter without mass effect lik ozzy representing chronic small vessel disease Vessels: There are moderate calcifications in the vertebral arteries and carotid siphons bilaterally . Extra-axial: Negative. Calvarium / scalp: Negative. Skull base / visualized face: Negative. Visualized sinuses / orbits: There are mucous retention cyst versus polypoid lesions in both maxilla ry sinuses IMPRESSION: Moderate diffuse central cortical atrophy Patchy hypodensities in periventricular white matter without mass effect likely representing chronic small vessel disease Moderate vascular calcifications in the vertebral arteries and carotid siphons Mucous retention cyst versus polypoid lesions in both maxillary sinuses Report Dictated By: Alisha Naylor MD at 02/27/2018 10:51 AM Report E-Signed By: Alisha Naylor MD at 02/27/2018 10:55 AM [id number]
[2018-02-27] MEDS ORDERED: NS(*) 0.9% 1000 ML BAG 1,000 ML IV ONE (11:40)
[2018-02-27] MEDS ORDERED: NS 0.9% 25 ML BAG 50 ML ONE (11:54)
[2018-02-27] MEDS ORDERED: IOPAMIDOL 76% 100 ML INFUS BTL 100 ML ONE (11:54)
--- NOTE | 2018-02-27 12:56 | RADIOLOGY IMAGING REPORT ---
FACILITY: [facility] [place] PATIENT NAME: Fam Mills : 1930 MR: [id number] V: [id number] EXAM DATE: ORDERING PHYSICIAN: KATIE OTERO TECHNOLOGIST: Location: [facility] [place] Patient: Fam Mills : 1930 Visit/Account:[id number] Date of Sevice: 02/27/2018 EXAMINATION: CT CHEST PULMONARY ANGIOGRAM COMPARISON: Chest x-ray same day and earlier. Chest CT 07/07/2016 HISTORY: Weakness. PROCEDURE: Pulmonary arterial phase imaging of the chest with 75 mL intravenous Isovue 370. Reconstru ction of the source data set includes multiplanar 2D in the sagittal and coronal planes, and 3D recon structed coronal slab MIP series. One of the following dose optimization techniques was utilized in the performance of this exam: Autom ated exposure control; adjustment of the mA and/or kV according to the patient's size; or use of an i terative reconstruction technique. Specific details can be referenced in the facility's radiology C T exam operational policy. FINDINGS: Pulmonary vasculature: There is good contrast opacification of the pulmonary arterial system. No pul monary embolism. Main pulmonary artery size is normal. Cardiac and mediastinum: Cardiac chambers are prominent but unchanged. No pericardial effusion. Thora cic aorta minimal atherosclerosis. No aneurysm or dissection. Advanced coronary calcifications. No th oracic lymph node enlargement. Lungs and pleura: Right upper lobe calcified granuloma. Pulmonary micronodules measuring up to 5 mm a re unchanged since at least 2015 and are considered a benign finding. No new or enlarging consolidati on or nodule. No pneumothorax, edema, or effusion. Mild dependent atelectasis. Airways: No airway occlusion. Upper abdomen: No acute findings. Osseous structures: Mild degenerative change in the lower thoracic spine. No acute findings. IMPRESSION: 1. No pulmonary embolism or evidence of acute cardiopulmonary disease. 2. Nonacute findings as described above. Report Dictated By: Juanpablo Ramos MD at 02/27/2018 12:45 PM Report E-Signed By: Juanpablo Ramos MD at 02/27/2018 12:52 PM [id number]
--- NOTE | 2018-02-27 13:16 | RADIOLOGY IMAGING REPORT ---
FACILITY: [facility] PATIENT NAME: Fam Mills : 1930 MR: [id number] V: [id number] EXAM DATE: ORDERING PHYSICIAN: KATIE OTERO TECHNOLOGIST: Location: [facility] - [place] Patient: Fam Mills : 1930 Visit/Account:[id number] Date of Sevice: 02/27/2018 Exam type: LUMBAR SPINE 2 OR 3 VIEW History: low back pain Comparison: None. Findings: There are five nonrib-bearing lumbar-type vertebral bodies present there is no evidence of acute frac tures. There is a 2 mm anterior listhesis of L4 with respect to L5 and moderate degenerative facet j oint changes L4-5 and L5-S1. There is moderate disc space narrowing also noted at L5-S1. Contrast i s noted in the incompletely imaged renal collecting systems and ureters bilaterally. There appears t o be mild fullness of the left renal pelvis and left ureter. A 5 mm ossification projects over the l eft-sided the bladder immediately adjacent to the distal left ureter or possibly a distal left ureter al calculus. IMPRESSION: 1. Spondylotic changes of the lumbar spine as described Mild fullness the left renal collecting system and left ureter from today's prior CT scan. There is a 5 mm calcination projecting immediately adjacent to the distal left ureter possibly a distal left u reteral calculus Report Dictated By: Alisha Naylor MD at 02/27/2018 1:09 PM Report E-Signed By: Alisha Naylor MD at 02/27/2018 1:13 PM WSN:[id number]
[2018-02-27 15:31] VITALS: BP 150/81
[2018-02-27] MEDS ORDERED: METR-160 PO (15:41)
[2018-02-27] MEDS ORDERED: INFLUENZA VIRUS VAC 0.5 ML SYR IM ONLY ONE (18:05)
[2018-02-27] MEDS ORDERED: MAGNESIUM HYDROXIDE* 30ML UDCP PO PRN (19:00)
[2018-02-27] MEDS ORDERED: BISACODYL 10 MG SUPP PR PRN (19:00)
--- NOTE | 2018-02-27 19:24 | History & Physical ---
History of Present Illness History of Present Illness 87yo male with a h/o prostate cancer and recent urine retention who was brought to the ER for falls. For the last couple of months, his has noticed that he is more sleepy and taking naps. For the last couple of weeks, he has been having more difficulty with ambulation and transfers. For the last week, he has required about 30 minutes to be able to ambulate when getting out of bed because of low back pain. Yesterday, he fell backwards twice. He had no warning but just fell. He denies vertigo symptoms, palpitation, tunnel vision, or LOC. He fell backwards again while getting to his car and then another after leaving Dr. Quiroga's office. He had a Garzon catheter placed last week for retention. Dr. Quiroga removed it today, but he hadn't urinated afterwards. No f/c/n/v. He has had a worsening left hand tremor with activity for a couple of months. He has had a shuffling gait for the last couple of days. In the ER, a Garzon was placed with 400cc PVR. History Problems: (1) Prostate cancer Status: Chronic (2) Hypothyroidism Status: Chronic (3) Mccullough's esophagus Status: Chronic (4) Carcinoma of unknown primary Status: Chronic Home Meds Reported Medications Metronidazole (METRONIDAZOLE) 500 Mg Tablet, 500 MG PO BIDBS, TAB 02/27/18 Tamsulosin Hcl (FLOMAX) 0.4 Mg Cap.er.24h, 0.4 MG PO QHS, CAP 02/14/18 Cephalexin Monohydrate (CEPHALEXIN) 500 Mg Cap, 500 MG PO BIDBS, CAP 02/14/18 Levothyroxine Sodium (LEVOTHYROXINE SODIUM) 50 Mcg Tablet, 50 MCG PO QDAY, TAB 12/03/17 Discontinued Reported Medications Vit C/E/Zn/Coppr/Lutein/Zeaxan (Preservision Areds 2 Softgel) 1 Each Capsule, 1 CAP PO DAILY 05/30/17 Calcium Carbonate (CALCIUM CARBONATE) 600 Mg Tablet, 1 TAB PO DAILY 05/30/17 Cholecalciferol (Vitamin D3) (VITAMIN D3) 1,000 Unit Tablet, 1 TAB PO DAILY 10/10/16 Allergies: Coded Allergies: No Known Drug Allergies (Unverified , 08/19/14) Patient History: FH: celiac disease CHILD FH: ovarian cancer CHILD Hx Smoking: No Smoking Status: Never Smoker Exposure to Second Hand Smoke?: No Caffeine Intake: Coffee Caffeine/Cups Per Day: 2 Hx Alcohol Use: Yes Alcohol Used: Wine Hx Substance Use Disorder: No Social Drug Use: Never Review of Systems All Systems Reviewed/Normal: Yes, Except as Noted Exam Vital Signs Vital Signs Date Time Temp Pulse Resp B/P (MAP) Pulse Ox O2 Delivery O2 Flow Rate FiO2 02/27/18 15:31 98.3 65 20 150/81 (104) 94 Room Air General Appearance: Alert, Awake, No Acute Distress Neuro: Other (Knows where he is and why he is here. He has difficulty with all his recent symptoms requiring help from his . Normal sensation to light touch in LE bilaterally. Equal and strong dorsiflexion/plantar flexion. Able to resist hip flexion to gravity and some resistance bilaterally. No clonus on right, but has stiffness in the left ankle and difficult to check clonus. Resting pill rolling tremor in the right hand. Mild bilateral active tremor with hands extended. Possible cogwheel rigidity bilaterally) Eyes: PERRLA Cardiovascular: Regular Rate and Rhythm Respiratory: Clear to Auscultation GI: Abd Soft and Non-Tender Extremities: No Edema Integumentary: No Jaundice, No Cyanosis Medical Decision Making Data Points Result Diagram: 02/27/18 1020 02/27/18 1020 Item Value Date Time Troponin I < 0.012 ng/ml 02/27/18 1020 Total Bilirubin 0.3 mg/dl 02/27/18 1020 Aspartate Amino Transf (AST/SGOT) 16 U/L 02/27/18 1020 Alanine Aminotransferase (ALT/SGPT) 20 U/L 02/27/18 1020 Alkaline Phosphatase 73 U/L 02/27/18 1020 Carcinoembryonic Antigen 3.4 ng/mL H 11/28/17 0911 White Blood Count 6.4 k/uL 11/28/17 0911 White Blood Count 13.1 k/uL H 02/27/18 1020 Hemoglobin 11.9 g/dL L 02/27/18 1020 Hemoglobin 13.9 g/dL L 11/28/17 0911 Neutrophils (%) (Auto) 59.6 % 11/28/17 0911 Neutrophils (%) (Auto) 79.5 % H 02/27/18 1020 D-Dimer Quantitative (PE/DVT) 1.48 ug/ml H 02/27/18 1020 Urine Leukocyte Esterase Small H 02/27/18 1521 Urine RBC 3 /HPF 02/27/18 1521 Urine WBC 36 /HPF 02/27/18 1521 Urine Squamous Epithelial Cells None /LPF 02/27/18 1521 SPEC #: [id number] PHAN: 02/25/18-UNK STATUS: COMP REQ #: [id number] RECD: 02/25/18-[address]: AMADEO LÓPEZ MD SOURCE: [facility] ENTR: 02/25/18-[address]: JENNIFER WRIGHT MD [facility]: ORDERED: CULT URINE COMMENTS: PT'S SAID PT DID NOT WASH HANDS OR WIPE BEFORE COLLECTING SPECIMEN Procedure Result Verified URINE CULTURE Final 02/27/18-1049 Organism 1 ENTEROBACTER CLOACAE COMPLEX >100,000 COL/ML E CALI CMPX M.I.C. RX --------- --- CEFAZOLIN >=64 R CEFTAZIDIME <=1 S CEFTRIAXONE <=1 S CEFEPIME <=1 S CEFOXITIN >=64 R ERTAPENEM <=0.5 S CIPROFLOXACIN <=0.25 S GENTAMICIN <=1 S IMIPENEM <=0.25 S LEVOFLOXACIN <=0.12 S NITROFURANTOIN 64 I PIPERACILLIN/TAZOBACTAM <=4 S TOBRAMYCIN <=1 S TRIMETHOPRIM/SULFAMETHOXAZOLE <=20 S --- EKG / Imaging EKG Interpretation Vent. Rate : 071 BPM Atrial Rate : 071 BPM P-R Int : 190 ms QRS Dur : 082 ms QT Int : 398 ms P-R-T Axes : 064 005 050 degrees QTc Int : 432 ms Normal sinus rhythm Normal ECG When compared with ECG of 20-AUG-2014 10:02, No significant change was found Confirmed by LISA AGUILAR ([id number]) on 02/27/2018 2:27:16 PM Imaging Chest CTA - 1. No pulmonary embolism or evidence of acute cardiopulmonary disease. 2. Nonacute findings as described above. Lumbar Spine Xray - 1. Spondylotic changes of the lumbar spine as described Mild fullness the left renal collecting system and left ureter from today's prior CT scan. There is a 5 mm calcination projecting immediately adjacent to the distal left ureter possibly a distal left ureteral calculus CXR - 1. No acute cardiopulmonary process. Head CT - Moderate diffuse central cortical atrophy Patchy hypodensities in periventricular white matter without mass effect likely representing chronic small vessel disease Moderate vascular calcifications in the vertebral arteries and carotid siphons Mucous retention cyst versus polypoid lesions in both maxillary sinuses Abd/Pelvis CT - There is now presacral soft tissue density present on the prior study. There are also streaky infiltrative changes seen in the perirectal fat with adjacent wall thickening of the rectum. This could be secondary to an acute infectious/inflammatory process. There is a moderate amount of fecal material seen in the right-sided colon, transverse colon and proximal descending colon consistent with history of constipation. The sigmoid colon appears well totally decompressed. Due to the abrupt transition colonoscopy may be helpful Small to moderate hiatal hernia and hyperdense material within the stomach of uncertain etiology. Acute therapy seeds within the prostate Garzon catheter noted within the urinary bladder. The bladder wall is moderately thickened Lipoma in the mid body the pancreas is slightly increased in size now measuring 11 mm as opposed 8 mm Bibasal pulmonary nodules and parenchymal scarring appears relatively unchanged Assessment and Plan Problems: (1) Weakness Status: Acute Assessment & Plan: He presented with about 7 falls in the last few weeks and 4 of them in the last 2 days. He falls backwards without warning, but has no worrisome prodromal symptoms or LOC. Infection vs malignancy vs Parkinson disease. Treating the possible UTI and presacral soft tissue density/ perirectal fat infiltration. See below. OT/PT to see tomorrow. Will do a trial dose of Sinemet x3 doses. (2) Urinary retention Status: Acute Assessment & Plan: He has had difficulty over the last couple of weeks. Catheter removed today, but he couldn't urinate so was replaced in the ER with PVR of 400cc. Dr. Quiroga recommends leaving in the Garzon for now and can stop Flomax. Because of the pyuria, leukocytosis, progressive weakness and a urine culture from 02/25 that is growing enterbacter cloacae complex, will start Levofloxacin. He was on Keflex and Flagyl, but it is resistant to Keflex and Flagyl sensitivity wasn't done. On 02/11, he grew Aerococcus Urinae. Urine culture pending. (3) Presacral mass Status: Acute Assessment & Plan: Seen on CT. New since December 2016. There is a soft tissue density in the presacral area with associated streaky infiltrative changes of the perirectal fat and rectal wall thickening. Levofloxacin started as mentioned above. Dr. Phillips did look at the CT, but felt the patient could be followed up as an outpatient. Check CRP. (4) Constipation Status: Acute Assessment & Plan: Stool seen in the right side of the colon to the proximal descending colon. Because of the abrupt transition to sigmoid colon, colonoscopy had been recommended by radiology. Will start Miralax/docusate scheduled with prn MOM and Dulcolax. Might need to discuss with Dr. Phillips. (5) Carcinoma of unknown primary Status: Chronic Assessment & Plan: He is followed by Dr. Rivera. He was last seen in November. CEA was unchanged then. He didn't recommend followup until May. Will repeat CEA. (6) Prostate cancer Status: Chronic Assessment & Plan: He was first diagnosed in 2001 with relapse in 2014. External beam radiation in 2001. Lupron on hold indefinitely secondary to SE and it was stopped in 2015. PSA was <0.06 in November. Followed by Drs. Rivera and Junaid. Will repeat PSA. (7) Hypothyroidism Status: Chronic Assessment & Plan: Continue chronic levothyroxine. (8) Resting tremor Status: Chronic Assessment & Plan: Noted in the left hand with bilateral cogwheel rigidity. Family has noted a shuffling gait over the last week or so. Will do a 3 dose trial of Sinemet and have the patient work with therapy. Copies to: JENNIFER WRIGHT MD; JENN QUIROGA MD; CRISPIN RIVERA MD Venous Thromboembolism Antithrombotics Is Pt On Any Antithrombotics?: No Exam Sepsis Risk: No Definite Risk LISA AGUILAR MD Feb 27, 2018 19:24
[2018-02-27] MEDS: POLYETHYLENE GLYCOL 17 GM PKT PO SCH (19:40)
[2018-02-27 19:46] VITALS: BP 129/72
[2018-02-27] MEDS ORDERED: NS(*) 0.9% 250 ML BAG 250 ML ONE (19:46)
[2018-02-27] MEDS ORDERED: LEVOFLOXACIN/D5W 750 MG/150 ML 150 ML IVPB SCH (20:00)
[2018-02-27] MEDS: DOCUSATE SODIUM 100 MG CAP PO SCH (20:41)
[2018-02-28 03:05] VITALS: BP 113/51
[2018-02-28] MEDS: LEVOTHYROXINE SOD 0.05 MG TAB PO SCH (05:30)
[2018-02-28 06:19] LABS: PLATELET COUNT, AUTOMATED 318 K/uL (150-450)
[2018-02-28 07:42] VITALS: BP 128/65
[2018-02-28] MEDS: ENOXAPARIN 40 MG/0.4ML SYR SC SCH (08:25)
[2018-02-28] MEDS: POLYETHYLENE GLYCOL 17 GM PKT PO SCH (08:25)
[2018-02-28] MEDS: CARBIDOPA/LEVODOPA 25/100 TAB PO SCH ×3 (08:25→20:50)
[2018-02-28] MEDS: DOCUSATE SODIUM 100 MG CAP PO SCH ×2 (08:29→20:50)
[2018-02-28 11:13] VITALS: BP 122/71
--- NOTE | 2018-02-28 11:16 | Hospitalist Progress Note ---
Subjective Progress Notes Subjective This patient was admitted for weakness. He had no acute events overnight. Patient Complains of: Cardiovascular: No: Chest Pain Respiratory: No: Shortness of Breath Physical Exam Vital Signs Date Time Temp Pulse Resp B/P (MAP) Pulse Ox O2 Delivery O2 Flow Rate FiO2 02/28/18 07:50 89 Room Air 02/28/18 07:42 97.9 62 18 128/65 (86) Intake and Output 03/01/18 07:00 Intake Total 240 ml Output Total 350 ml Balance -110 ml Intake Oral 240 ml Output Urine Total 350 ml Cardiovascular: Regular Rate and Rhythm Respiratory: Clear to Auscultation Result Diagram: 02/28/1851902/28/18519 Assessment and Plan Problems: (1) Weakness Status: Acute Assessment & Plan: He presented with about 7 falls in the last few weeks and 4 of them in the last 2 days. He falls backwards without warning, but has no worrisome prodromal symptoms or LOC. Physical and occupational therapy consults are pending. (2) Urinary retention Status: Acute Assessment & Plan: He has had difficulty over the last couple of weeks. He is followed by Dr. Quiroga. He had a urinary catheter removed the day before admission, but it was replaced in the emergency department. (3) Presacral mass Status: Acute Assessment & Plan: This is new since December 2016. There is a soft tissue density in the presacral area with associated streaky infiltrative changes of the perirectal fat and rectal wall thickening. Dr. Phillips did look at the CT, but felt the patient could be followed up as an outpatient. (4) Constipation Status: Acute Assessment & Plan: Stool seen in the right side of the colon to the proximal descending colon. Because of the abrupt transition to sigmoid colon, colonoscopy had been recommended by radiology. He is on a constipation protocol , but has not yet had a response. (5) Carcinoma of unknown primary Status: Chronic Assessment & Plan: He is followed by Dr. Parrish. He was last seen in November. CEA was unchanged then. A repeat CEA is pending. (6) Prostate cancer Status: Chronic Assessment & Plan: He was first diagnosed in 2001 with relapse in 2014. External beam radiation in 2001. Lupron on hold indefinitely secondary to SE and it was stopped in 2015. PSA was <0.06 in November. Followed by Drs. Parrish and Junaid. A repeat PSA is pending. (7) Hypothyroidism *Optional Permanent Comment*: mild elevation of TSH 4.08 on 09/03/14 Last Edited By: Kelly Hernandez on Oct 08, 2014 09:00 Status: Chronic Assessment & Plan: Continue chronic levothyroxine. (8) Resting tremor Status: Chronic Assessment & Plan: We did start him on a trial of Sinemet. Exam Sepsis Risk: No Definite Risk JENNIFER TURK DO Feb 28, 2018 11:16
[2018-02-28 13:11] VITALS: Ht 167.6 cm; Wt 71.7 kg
[2018-02-28 15:57] VITALS: BP 121/71
[2018-02-28 20:53] VITALS: BP 139/72
[2018-02-28 23:37] VITALS: BP 129/70
[2018-03-01] MEDS: LEVOTHYROXINE SOD 0.05 MG TAB PO SCH (05:52)
[2018-03-01 07:40] VITALS: BP 129/70
[2018-03-01] MEDS: POLYETHYLENE GLYCOL 17 GM PKT PO SCH (09:10)
[2018-03-01] MEDS: DOCUSATE SODIUM 100 MG CAP PO SCH ×2 (09:10→20:28)
[2018-03-01] MEDS: ENOXAPARIN 40 MG/0.4ML SYR SC SCH (09:11)
--- NOTE | 2018-03-01 11:33 | Hospitalist Progress Note ---
Subjective Progress Notes Subjective He reports some improvement in weakness. He does have an appetite this morning. Still having a lot of back pain with transfers. Physical Exam Vital Signs Date Time Temp Pulse Resp B/P (MAP) Pulse Ox O2 Delivery O2 Flow Rate FiO2 03/01/18 08:50 94 Room Air 03/01/18 07:40 98.5 63 18 129/70 (89) Intake and Output 03/02/18 07:00 Intake Total 880 ml Balance 880 ml Intake Oral 880 ml General Appearance: Alert, Awake, No Acute Distress GI: Soft and Non-Tender Musculoskeletal: Other (Able to flex at hip from sitting without any back pain. ) Extremities: No Edema Result Diagram: 02/28/1851902/28/18519 Assessment and Plan Problems: (1) Weakness Status: Acute Assessment & Plan: He presented with about 7 falls in the last few weeks and 4 of them in the last 2 days. He falls backwards without warning, but has no worrisome prodromal symptoms or LOC. Physical and occupational therapy report mod/max assist and note that he does have erratic and sudden loss of balance. They are recommending [facility] upon discharge. Low back/left leg pain have been present for about a week. Will get a MRI of the lumbar spine to evaluate further. We did a trial of Sinemet yesterday, but it is unclear if that was helpful. We will see how working with therapy goes today without the Sinemet. (2) Urinary retention Status: Acute Assessment & Plan: He has had difficulty over the last couple of weeks. Catheter removed the day of admission, but he couldn't urinate so was replaced in the ER with PVR of 400cc. Dr. Quiroga recommends leaving in the Garzon for now and can stop Flomax. Because of the pyuria, leukocytosis, progressive weakness and a urine culture from 02/25 that is growing enterbacter cloacae complex, Levofloxacin was given, but now stopped because of no growth on urine culture so far. He was on Keflex and Flagyl, but it is resistant to Keflex and Flagyl sensitivity wasn't done. On 02/11, he grew Aerococcus Urinae. (3) Presacral mass Status: Acute Assessment & Plan: This is new since December 2016. There is a soft tissue density in the presacral area with associated streaky infiltrative changes of the perirectal fat and rectal wall thickening. Dr. Phillips, reportedly, did look at the CT, and felt the patient could be followed up as an outpatient. CRP elevated. Will get an MRI to evaluate further and discuss with Dr. Phillips in detail about his thoughts. (4) Constipation Status: Acute Assessment & Plan: Stool seen in the right side of the colon to the proximal descending colon. Because of the abrupt transition to sigmoid colon, colonoscopy had been recommended by radiology. He is on a constipation protocol , but has not yet had a big response. (5) Carcinoma of unknown primary Status: Chronic Assessment & Plan: He is followed by Dr. Parrish. He was last seen in November. He didn't recommend followup until May. CEA was unchanged then. A repeat CEA is pending. (6) Prostate cancer Status: Chronic Assessment & Plan: He was first diagnosed in 2001 with relapse in 2014. External beam radiation in 2001. Lupron on hold indefinitely secondary to SE and it was stopped in 2015. PSA was <0.06 in November. Followed by Drs. Parrish and Junaid. A repeat PSA is <0.06 (7) Hypothyroidism Status: Chronic Assessment & Plan: Continue chronic levothyroxine. (8) Resting tremor Status: Chronic Assessment & Plan: Noted in the left hand with bilateral cogwheel rigidity. Family has noted a shuffling gait over the last week or so. We did a trial of Sinemet on 02/28 of unclear benefit. See above. Exam Sepsis Risk: No Definite Risk LISA AGUILAR MD Mar 01, 2018 11:32
[2018-03-01] MEDS ORDERED: GADOBENATE 529MG/1ML 15ML VIAL IVP ONE (12:21)
--- NOTE | 2018-03-01 14:14 | RADIOLOGY IMAGING REPORT ---
FACILITY: [facility] - [place] PATIENT NAME: Fam Mills : 1930 MR: [id number] V: [id number] EXAM DATE: ORDERING PHYSICIAN: LISA AGUILAR TECHNOLOGIST: Location: [facility] Patient: Fam Mills : 1930 Visit/Account:[id number] Date of Sevice: 03/01/2018 EXAMINATION: L SPINE W W/O CONTRAST INDICATION: Low back pain, left leg pain COMPARISON: February 25, [address] TECHNIQUE: Multiplane MR imaging was performed through the lumbar spine without and with contrast. 15 ml multihance injected. FINDINGS: Vertebral body height: Normal Conus position/signal: Normal Marrow signal: Enhancing marrow edema surrounds the L5-S1 disc space which is severely degenerated. M inimal degenerative edema along the inferior L1 endplate. Posterior upper L1 vertebral body hemangiom a. Nonenhancing sclerosis within the L1 vertebral body measures 1.5 cm. Notably there is faint sclero sis within the L1 vertebral body on the comparison CT scan for example sagittal image [address] sc an which likely correlates with the sclerosis. Notably this is much more visible by MR. Extraspinal structures including psoas muscles/paraspinal soft tissues: Multiple bilateral renal cyst s. Nonspecific presacral edema unchanged. L1-2: Normal L2-3: Mild left foraminal narrowing, otherwise normal. L3-4: Mild bilateral foraminal narrowing, otherwise normal. L4-5: Minimal disc protrusion, slight anterolisthesis of L4 on L5, ligamentum flavum thickening and m oderate facet arthropathy. Prominence of posterior epidural space fat. Bilateral lateral recess narro wing and mild to moderate thecal sac narrowing. Moderate right and mild left foraminal narrowing. L5 S1: Severe disc space degeneration, slight retrolisthesis of L5 on S1, minimal disc protrusion, mi ld right lateral recess narrowing, severe bilateral foraminal narrowing. IMPRESSION: 1. Nonspecific enhancing marrow edema surrounds the L5-S1 disc space which is favored to be degenerat kelsey related to severe disc space degeneration. 2. Unchanged nonspecific presacral edema. 3. Nonenhancing 1.5 cm L1 vertebral body sclerosis is more visible by MR. This is likely present on c omparison CT but is only faintly visible on the CT scan. This may represent benign vascular sclerosis . A sclerotic metastatic lesion cannot be entirely excluded and follow-up MR may be warranted in 2-3 months to ensure stability. A whole body bone scan could be utilized to exclude metastatic disease within the remainder of the sk [place]leton and to exclude abnormal activity at this level as needed. 4. Mild to moderate L4-5 thecal sac narrowing secondary to the constellation of degenerative findings described above. 5. Multilevel foraminal narrowing, see level by level comments above. Report Dictated By: Herminio Bran MD at 03/01/2018 1:57 PM Report E-Signed By: Herminio Bran MD at 03/01/2018 2:10 PM WSN:[id number]
[2018-03-01 15:01] VITALS: BP 124/66
[2018-03-01] MEDS ORDERED: methylPREDNIS SUCC 125 MG/2ML IVP ONE (17:20)
[2018-03-01 20:36] VITALS: BP 130/78
[2018-03-02] MEDS: LEVOTHYROXINE SOD 0.05 MG TAB PO SCH (06:04)
[2018-03-02 06:06] VITALS: BP 116/62
[2018-03-02] MEDS ORDERED: predniSONE 20 MG TAB PO SCH (09:00)
[2018-03-02] MEDS: ENOXAPARIN 40 MG/0.4ML SYR SC SCH (09:08)
[2018-03-02] MEDS: DOCUSATE SODIUM 100 MG CAP PO SCH (09:08)
[2018-03-02] MEDS: POLYETHYLENE GLYCOL 17 GM PKT PO SCH (09:08)
[2018-03-02] MEDS ORDERED: POLY17PO21 PO (16:07)
[2018-03-02] MEDS ORDERED: DOCU-202 PO (16:07)
--- NOTE | 2018-03-02 16:18 | Hospitalist Depart ---
Discharge Summary Reason for Hosp/Final Diag: (1) Weakness Status: Acute Hospital Course & Plan: He presented with about 7 falls in the last few weeks and 4 of them in the last 2 days. He falls backwards without warning, but has no worrisome prodromal symptoms or LOC. Physical and occupational therapy report mod/max assist and note that he does have erratic and sudden loss of balance. Low back/left leg pain have been present for about a week. MRI lumbar spine showed chronic changes but nothing which would explain presenting symptoms. We did a trial of Sinemet without benefit. Follow up with oncology warranted given urinary retention, back pain and intermittent leg weakness and Hx of unknown primary adenocarcinoma? (2) Urinary retention Status: Acute Hospital Course & Plan: He has had difficulty over the last couple of weeks. Catheter removed the day of admission, but he couldn't urinate so was replaced in the ER with PVR of 400cc. Dr. Quiroga recommends leaving in the [place] for now and can stop Flomax. Urine culture from 02/25 growing enterbacter cloacae complex. He was on Keflex and Flagyl, but it is resistant to Keflex and Flagyl sensitivity wasn't done. On 02/11, he grew Aerococcus Urinae. (3) Presacral mass Status: Acute Hospital Course & Plan: This is new since December 2016. There is a soft tissue density in the presacral area with associated streaky infiltrative changes of the perirectal fat and rectal wall thickening. Dr. Phillips, reportedly, did look at the CT, and felt the patient could be followed up as an outpatient. CRP elevated. Follow up outpt with Dr Phillips. (4) Constipation Status: Acute Hospital Course & Plan: Large BM after stimulant laxative. Continue Miralax and Colace outpt. 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 Parrish. He was last seen in November. He didn't recommend followup until May. CEA was unchanged then. A repeat CEA WNL (6) Prostate cancer Status: Chronic Hospital Course & Plan: He was first diagnosed in 2001 with relapse in 2014. External beam radiation in 2001. Lupron on hold indefinitely secondary to SE and it was stopped in 2015. PSA was <0.06 in November. Followed by Drs. Parrish and Junaid. A repeat PSA is <0.06 (7) Hypothyroidism *Optional Permanent Comment*: mild elevation of TSH 4.08 on 09/03/14 Last Edited By: Kelly Hernandez on Oct 08, 2014 09:00 Status: Chronic Hospital Course & Plan: Continue chronic levothyroxine. (8) Resting tremor Status: Chronic Hospital Course & Plan: Noted in the left hand with bilateral cogwheel rigidity. Family has noted a shuffling gait over the last week or so. We did a trial of Sinemet on 02/28 of unclear benefit. See above. Departure Weight (Pounds): 158 Weight (Ounces): 5.0 Result Diagram: 02/28/1851902/28/18519 Condition: Improved Discharge: Home Health PT/OT Follow Up For: PT For Strengthening, OT Evaluation and Treat Discharge Instructions Home Meds Reported Medications Metronidazole (METRONIDAZOLE) 500 Mg Tablet, 500 MG PO BIDBS, TAB 02/27/18 Tamsulosin Hcl (FLOMAX) 0.4 Mg Cap.er.24h, 0.4 MG PO QHS, CAP 02/14/18 Cephalexin Monohydrate (CEPHALEXIN) 500 Mg Cap, 500 MG PO BIDBS, CAP 02/14/18 Levothyroxine Sodium (LEVOTHYROXINE SODIUM) 50 Mcg Tablet, 50 MCG PO QDAY, TAB 12/03/17 Discontinued Reported Medications Vit C/E/Zn/Coppr/Lutein/Zeaxan (Preservision Areds 2 Softgel) 1 Each Capsule, 1 CAP PO DAILY 05/30/17 Calcium Carbonate (CALCIUM CARBONATE) 600 Mg Tablet, 1 TAB PO DAILY 05/30/17 Cholecalciferol (Vitamin D3) (VITAMIN D3) 1,000 Unit Tablet, 1 TAB PO DAILY 10/10/16 Diet: Regular Activity: As Tolerated (with stand by assist, otherwise wheel chair.) Copies to: JENNIFER WRIGHT MD Venous Thromboembolism Antithrombotics Is Pt On Any Antithrombotics?: No [id number] Certification Face to Face Home Health Certification Institutional Provider conducted the [id number] encounter. Electronic Undersigning Physician Certifies Home Health. I certify that the patient has been under my care and that I had a [id number] encounter that meets the physician [id number] encounter requirements with this patient. This patient is home-bound due to safety issues and continues to require assistance with ADL's. I certify that based on my findings, that Nursing, Aides and the following Home Health services are medically necessary: PT/OT, ADL Medical Necessity: Rehab Date Face to Face Conducted: Mar 02, 2018 HUSSAIN BURNETTE DO Mar 02, 2018 16:18
== END 2018-03-02 17:45 | disposition home health service (06) ==
LOC: ER 10:01 → INTOOBSV 15:04 → OBSVTOIN 15:04 → MED 15:04
PROVIDERS: ADMIT Internal Medicine; ATTEND Internal Medicine
DX: R53.1 Weakness (principal); R33.9 Retention of urine, unspecified; Z91.81 History of falling; R22.9 Localized swelling, mass and lump, unspecified; K59.00 Constipation, unspecified; Z85.46 Personal history of malignant neoplasm of prostate; E03.9 Hypothyroidism, unspecified; R25.1 Tremor, unspecified
CPT/HCPCS: 36415; 70450; 71045; 71275; 72100; 72158; 81001; 82378; 83880; 84153; 84484; 85025; 85379; 86140; 87077; 87088; 87186; 93005; 96360; 96361; 97116; 97161; 97166; 97530; 97535; 99285; A4338; A9270; A9577; G0378; J1650; J1956; J2930; J7030; J7512; Q9967; 82040; 82247; 82310; 82374; 82435; 82565; 82947; 84075; 84132; 84155; 84295; 84450; 84460; 84520; 96372